=== PATIENT | male | born 1960 | race Caucasian/White ===

== ENCOUNTER 2017-05-22 09:13 | Emergency (ER) | payer OTHER ==
[2017-05-22 09:47] VITALS: BP 141/80
--- NOTE | 2017-05-22 10:22 | UC ---
General HPI - HPI Summary HPI Summary: 57 y/o male PMHX of HTN, gout presents to the urgent care c/o fatigue, weakness , DOWNS, join pains, no appetite for the past week. Pt reports a tick bite 1 year ago w/o any prophylactic treatment. Pt had a benign thyroid nodule removed with needle aspiration in 2016 and hasn't checked his thyroid levels since then. He also reports Hx of Herniated disc s/p surgery in 2016. Pt denies a rash, fever, SOB, chest pain, N/V/D, abdominal pain. Pt has not other complains. - History of Current Complaint Chief Complaint: UCGeneralIllness Stated Complaint: WEAKNESS,TIRED,FEVER Time Seen by Provider: 05/22/17 10:01 Hx Obtained From: Patient Onset/Duration: Gradual Onset, Lasting Days Timing: Constant Onset Severity: Mild Current Severity: Moderate Pain Intensity: 6 - all DOWNS, joints pain and back pain Associated Signs & Symptoms: Positive: Back Pain, Headache, Weakness. Negative : Abdominal Pain, Cough, Chest Pain, Diarrhea, Dysuria, Fever, Nausea, SOB, Vomiting - Allergy/Home Medications Allergies/Adverse Reactions: Allergies Allergy/AdvReac Type Severity Reaction Status Date / Time Ibuprofen [From Advil] Allergy Hives Verified 05/22/17 09:47 PMH/Surg Hx/FS Hx/Imm Hx Previously Healthy: Yes Endocrine History: Thyroid Disease - Thyroid bening nodule removed by needle aspiration in 2016 Other Endocrine History: GOUT Cardiovascular History: Hypertension - Surgical History Surgical History: Yes Surgery Procedure, Year, and Place: KIDNEY STONE REMOVAL, WISDOM TEETH, TONSILS, - Family History Known Family History: Positive: Hypertension - Social History Alcohol Use: Weekly Alcohol Amount: 3-4 WEEKLY Substance Use Type: None Smoking Status (MU): Never Smoked Tobacco Review of Systems Constitutional: Fatigue, Other - no appetite Skin: Negative Eyes: Negative ENT: Negative Respiratory: Negative Cardiovascular: Negative Gastrointestinal: Negative Genitourinary: Negative Motor: Negative Neurovascular: Negative Musculoskeletal: Arthralgia - in all joints and back Neurological: Headache - mild Psychological: Negative All Other Systems Reviewed And Are Negative: Yes Physical Exam Triage Information Reviewed: Yes Appearance: Well-Appearing, No Pain Distress, Well-Nourished Vital Signs: Initial Vital Signs Temp 98.0 F 05/22/17 09:43 Pulse 82 05/22/17 09:43 Resp 16 05/22/17 09:43 BP 141/80 05/22/17 09:43 Pulse Ox 100 05/22/17 09:43 Vital Signs Reviewed: Yes Eye Exam: Normal Eyes: Positive: Conjunctiva Clear - PERRLA, EOMI, fundi grossly normal ENT Exam: Normal ENT: Positive: Normal ENT inspection, Hearing grossly normal, Pharynx normal, TMs normal Dental Exam: Normal Neck exam: Normal Neck: Positive: Supple, Nontender, No Lymphadenopathy Respiratory Exam: Normal Respiratory: Positive: Chest non-tender, Lungs clear, Normal breath sounds Cardiovascular Exam: Normal Cardiovascular: Positive: RRR, No Murmur, Pulses Normal, Brisk Capillary Refill Abdominal Exam: Normal Abdomen Description: Positive: Nontender, No Organomegaly, Soft. Negative: CVA Tenderness (R), CVA Tenderness (L) Bowel Sounds: Positive: Present Musculoskeletal Exam: Normal Musculoskeletal: Positive: Strength Intact, ROM Intact, No Edema, Other: - Back : No scoliosis or lesions observed. FROM, mild point tenderness at the Level of L5 and paraspinal muscles, no spasm observed. Positive sensation, reflexes, pulses intact B/L. Leg raise test:negative Neurological Exam: Normal Psychological Exam: Normal Skin Exam: Normal Course/Dx - Course Course Of Treatment: 57 y/o male PMHX of HTN, gout presents to the urgent care c /o fatigue, weakness, DOWNS, join pains, no appetite for the past week. Pt reports a tick bite 1 year ago w/o any prophylactic treatment. Pt had a benign thyroid nodule removed with needle aspiration in 2016 and hasn't checked his thyroid levels since then. He also reports Hx of Herniated disc s/p surgery in 2016. Pt denies a rash, fever, SOB, chest pain, N/V/D, abdominal pain. Hx obtained. PE abnormal findings: Back: No scoliosis or lesions observed. FROM, mild point tenderness at the Level of L5 and paraspinal muscles, no spasm observed. Positive sensation, reflexes, pulses intact B/L. Leg raise test: negative. The rest of PE WNL. R/o kidney stone since Pt with PMHX of kidney stone;UA ordered: results: negative. No blood in the urine. Pt doesn't recall a tick bite. However concern with Lyme. Present with weakness, myalgias, arthralgias and mild DOWNS. Lyme Serology ordered and Pt Rx Doxycycline PO prophilactically. Advised if symptoms worsen to go to the ER immediately for further treatment. Pt also advised on uncontrolled HTN and advised decrease salt intake and monitor BP and f/u with PCP. Also to get some thyroid levels since HX thyroid nodule and his symptoms can be related to his thyroid.Pt understood and agreed. - Differential Dx - Multi-Symptom Differential Diagnoses: Urinary Tract Infection, Other - Kidney stone, acute lower back pain, uncontolled HTN, Lyme disease. Provider Diagnoses: 1-Arthalgia, myalgias r/o lyme disease. 2-Headache. 3- Uncontrolled HTN Discharge - Discharge Plan Condition: Stable Disposition: HOME Prescriptions: DOXYcycline CAP(*) [DOXYcycline 100MG CAP(*)] 100 mg PO BID #42 cap Patient Education Materials: Lyme Disease (ED), Low Sodium Diet (ED) Referrals: Moise Matos MD [Primary Care Provider] - 1 Week Additional Instructions: Please take antibiotic as instructed and finish the full course of treatment for lyme. Increase fluid intake. Take Tylenol OTC q4-6hrs prn to alleviate symptoms of joint pains and myalgias. Lyme series ordered and if any abnormal results you will receive a call from us. Please f/u with your PCP for furhter work up in your HTN, thyroid levels. If you do not improve or if symptoms worsen please go immediately to the ER for further evaluation and treatment
== END 2017-05-22 10:45 | disposition home or self-care (01) ==
LOC: UCEAST 09:13
DX: M25.50 Pain in unspecified joint (principal); M79.1 Myalgia; R51 Headache; I10 Essential (primary) hypertension
CPT/HCPCS: 81003; 86618; 99212; G0463

== ENCOUNTER 2017-05-22 22:20 | Emergency (ER) | payer OTHER ==
[2017-05-23] MEDS ORDERED: NS 0.9% 1000 ML* 2,900 ML IV ONE (01:01)
[2017-05-23] MEDS ORDERED: HYDROmorphone* 1 MG/ML 1 ML SYR IV ONE (01:02)
[2017-05-23] MEDS ORDERED: Ondansetron INJ* 2 MG/ML VIAL IV ONE (01:02)
[2017-05-23 01:24] LABS: Albumin 3.8 g/dL (3.2-5.2); BUN/Creatinine Ratio 10.8 (8-20); Calcium 9.1 mg/dL (8.6-10.3); EGFR African American 122.4 (>60); EGFR Non-African American 95.2 (>60); Globulin 3.3 g/dL (2-4); Potassium 3.8 mmol/L (3.5-5.0); Total Bilirubin 0.4 mg/dL (0.2-1.0); Total Protein 7.1 g/dL (6.4-8.9)
[2017-05-23 01:34] LABS: Add Diff/Slide Review? Slide Review Added; Comments Flag Yes; Hematocrit 49 % (42-52); Hemoglobin 16.1 g/dl (14.0-18.0); Mean Corpuscular HGB Conc 33 g/dl (31-36); Mean Corpuscular Hemoglobin 31 pg (27-31); Mean Corpuscular Volume 94 fL (80-94); Mean Platelet Volume 9 um3 (7.4-10.4); Red Blood Count 5.19 10^6/ul (4.0-5.4); Red Cell Distribution Width 14 % (10.5-15); White Blood Count 4.5 10^3/ul (3.5-10.8)
[2017-05-23 02:36] LABS: Urine Bilirubin Negative (Negative); Urine Glucose Negative (Negative); Urine Nitrite Negative (Negative)
[2017-05-23] MEDS ORDERED: HYDROmorphone* 1 MG/ML 1 ML SYR IV SLOW PU ONE (02:57)
[2017-05-23 03:06] VITALS: BP 157/86
--- NOTE | 2017-05-23 03:06 | ED ---
Goyo Mahmood Benjamin, scribed for Alice Real MD on 05/23/17 at 0159 . Headache - HPI Summary HPI Summary: 57yo male c/o DOWNS for a week that has been getting worse. Pt is also reporting body aches, and joint pain. Pt was seen at [facility] where they did a UA and lyme Dz test. Pt wa rxed Doxycycline, which pt started today. Pt came to ED as his symptoms are getting worse. No rash anyway. Hx of HTN and Gout. FHX of HTN. - History Of Current Complaint Chief Complaint: EDFluSymptoms Stated Complaint: HEADACHE Time Seen by Provider: 05/23/17 00:29 Hx Obtained From: Patient, Family/Histotechnologist Supervisor - daughter Onset/Duration: Started weeks ago - 1 week, Still Present, Worse Since Initially Headache Was: Mild Currently Pain Is: Moderate Timing: Constant Location of Headache: Diffuse Aggravating Factor: Nothing Allevating Factors: Nothing Associated Signs And Symptoms: Negative - Allergies/Home Medications Allergies/Adverse Reactions: Allergies Allergy/AdvReac Type Severity Reaction Status Date / Time Ibuprofen [From Advil] Allergy Hives Verified 05/22/17 09:47 PMH/Surg Hx/FS Hx/Imm Hx Endocrine/Hematology History: Reports: Hx Thyroid Disease - gout Denies: Hx Diabetes, Hx Anemia Cardiovascular History: Reports: Hx Hypertension Denies: Hx Pacemaker/ICD Respiratory History: Reports: Hx Asthma GI History: Denies: Hx Jaundice History: Reports: Hx Kidney Stones Denies: Hx Renal Disease Sensory History: Reports: Hx Contacts or Glasses Denies: Hx Hearing Aid Opthamlomology History: Reports: Hx Contacts or Glasses Psychiatric History: Denies: Hx Panic Disorder - Surgical History Surgery Procedure, Year, and Place: KIDNEY STONE REMOVAL, WISDOM TEETH, TONSILS, Hx Anesthesia Reactions: Yes - PT STATES WAKES UP VIOLENT Infectious Disease History: No Infectious Disease History: Denies: Traveled Outside the [place] in Last 30 Days - Family History Known Family History: Positive: Hypertension Negative: Cardiac Disease, Diabetes - Social History Occupation: Employed Full-time Lives: With Family Alcohol Use: Weekly Alcohol Amount: 3-4 WEEKLY Substance Use Type: Reports: None Smoking Status (MU): Never Smoked Tobacco Review of Systems Constitutional: Negative Negative: Fever Eyes: Negative ENT: Negative Cardiovascular: Negative Respiratory: Negative Gastrointestinal: Negative Negative: Abdominal Pain Genitourinary: Negative Positive: no symptoms reported Positive: Myalgia Skin: Negative Negative: Rash Positive: Headache Psychological: Normal All Other Systems Reviewed And Are Negative: Yes Physical Exam Triage Information Reviewed: Yes Vital Signs On Initial Exam: Initial Vitals Temp Pulse Resp BP Pulse Ox 99.5 F 88 17 122/96 97 05/22/17 22:23 05/22/17 22:23 05/22/17 22:23 05/22/17 22:23 05/22/17 22:23 Vital Signs Reviewed: Yes Appearance: Positive: Well-Appearing, No Pain Distress, Well-Nourished Skin: Positive: Warm, Skin Color Reflects Adequate Perfusion, Dry Head/Face: Positive: Normal Head/Face Inspection, Temporal Artery Tenderness Eyes: Positive: EOMI, LILIAN ENT: Positive: Hearing grossly normal, Pharynx normal, TMs normal Neck: Positive: Supple, Nontender Respiratory/Lung Sounds: Positive: Clear to Auscultation, Breath Sounds Present. Negative: Rales, Rhonchi Cardiovascular: Positive: RRR. Negative: Murmur Abdomen Description: Positive: Nontender, Soft Bowel Sounds: Positive: Present Musculoskeletal: Positive: Strength/ROM Intact Neurological: Positive: Sensory/Motor Intact, Alert, Oriented to Person Place, Time, CN Intact II-III Psychiatric: Positive: Affect/Mood Appropriate Diagnostics - Vital Signs Vital Signs Temp Pulse Resp BP Pulse Ox 05/23/17 01:54 20 05/23/17 00:09 99.3 F 77 16 96 05/22/17 22:23 99.5 F 88 17 122/96 97 - Laboratory Lab Results: Lab Results 05/23/17 05/23/17 05/23/17 Range/Units 00:50 00:50 00:50 WBC 4.5 (3.5-10.8) 10^3/ul RBC 5.19 (4.0-5.4) 10^6/ul Hgb 16.1 (14.0-18.0) g/dl Hct 49 (42-52) % MCV 94 (80-94) fL MCH 31 (27-31) pg MCHC 33 (31-36) g/dl RDW 14 (10.5-15) % Plt Count Pending MPV 9 (7.4-10.4) um3 Neut % (Auto) 68.0 (38-83) % Lymph % (Auto) 22.3 L (25-47) % [place] % (Auto) 9.1 H (1-9) % Eos % (Auto) 0.3 (0-6) % Baso % (Auto) 0.3 (0-2) % Absolute Neuts (auto) 3.1 (1.5-7.7) 10^3/ul Absolute Lymphs (auto) 1.0 (1.0-4.8) 10^3/ul Absolute Monos (auto) 0.4 (0-0.8) 10^3/ul Absolute Eos (auto) 0 (0-0.6) 10^3/ul Absolute Basos (auto) 0 (0-0.2) 10^3/ul Absolute Nucleated RBC 0.01 10^3/ul Nucleated RBC % 0.2 INR (Anticoag Therapy) 0.99 (0.89-1.11) APTT 27.9 (26.0-36.3) seconds Sodium 129 L (133-145) mmol/L Potassium 3.8 (3.5-5.0) mmol/L Chloride 99 L (101-111) mmol/L Carbon Dioxide 27 (22-32) mmol/L Anion Gap 3 (2-11) mmol/L BUN 9 (6-24) mg/dL Creatinine 0.83 (0.67-1.17) mg/dL Est GFR ( Amer) 122.4 (>60) Est GFR (Non-Af Amer) 95.2 (>60) BUN/Creatinine Ratio 10.8 (8-20) Glucose 126 H (70-100) mg/dL Lactic Acid (0.5-2.0) mmol/L Calcium 9.1 (8.6-10.3) mg/dL Total Bilirubin 0.40 (0.2-1.0) mg/dL AST 44 H (13-39) U/L ALT 58 H (7-52) U/L Alkaline Phosphatase 90 (34-104) U/L Troponin I 0.00 (<0.04) ng/mL Total Protein 7.1 (6.4-8.9) g/dL Albumin 3.8 (3.2-5.2) g/dL Globulin 3.3 (2-4) g/dL Albumin/Globulin Ratio 1.2 (1-3) 07/18/17 Range/Units 00:50 WBC (3.5-10.8) 10^3/ul RBC (4.0-5.4) 10^6/ul Hgb (14.0-18.0) g/dl Hct (42-52) % MCV (80-94) fL MCH (27-31) pg MCHC (31-36) g/dl RDW (10.5-15) % Plt Count MPV (7.4-10.4) um3 Neut % (Auto) (38-83) % Lymph % (Auto) (25-47) % [place] % (Auto) (1-9) % Eos % (Auto) (0-6) % Baso % (Auto) (0-2) % Absolute Neuts (auto) (1.5-7.7) 10^3/ul Absolute Lymphs (auto) (1.0-4.8) 10^3/ul Absolute Monos (auto) (0-0.8) 10^3/ul Absolute Eos (auto) (0-0.6) 10^3/ul Absolute Basos (auto) (0-0.2) 10^3/ul Absolute Nucleated RBC 10^3/ul Nucleated RBC % INR (Anticoag Therapy) (0.89-1.11) APTT (26.0-36.3) seconds Sodium (133-145) mmol/L Potassium (3.5-5.0) mmol/L Chloride (101-111) mmol/L Carbon Dioxide (22-32) mmol/L Anion Gap (2-11) mmol/L BUN (6-24) mg/dL Creatinine (0.67-1.17) mg/dL Est GFR ( Amer) (>60) Est GFR (Non-Af Amer) (>60) BUN/Creatinine Ratio (8-20) Glucose (70-100) mg/dL Lactic Acid 0.9 (0.5-2.0) mmol/L Calcium (8.6-10.3) mg/dL Total Bilirubin (0.2-1.0) mg/dL AST (13-39) U/L ALT (7-52) U/L Alkaline Phosphatase (34-104) U/L Troponin I (<0.04) ng/mL Total Protein (6.4-8.9) g/dL Albumin (3.2-5.2) g/dL Globulin (2-4) g/dL Albumin/Globulin Ratio (1-3) Result Diagrams: 05/23/17 00:50 05/23/17 00:50 Lab Statement: Any lab studies that have been ordered have been reviewed, and results considered in the medical decision making process. - Radiology No standard instances Xray Interpretation: No Acute Changes Radiology Interpretation Completed By: ED Physician - cxr Re-Evaluation - Re-Evaluation First Eval Re-Evaluation Time: 02:56 Headache Course/Dx - Course Course Of Treatment: 57 yo male diagnosed with lyme on Sun after 5 days of body aches and then severe headache tonight, pt already started his doxy. He also does complain of sinus pain now after 1 mg of dilaudid which has helped resolve his discomfort greatly. He will get pain meds at home and will continue the doxy already prescribed which would also cure a sinusitis if that his the source of his fever, he does have low plts and sl elevated liver enzymes which are likely due to his tick borne illness - Diagnoses Provider Diagnoses: Lyme disease Discharge - Discharge Plan Condition: Stable Disposition: HOME Prescriptions: HYDROcodone/ACETAMIN 5-325 MG* [Newberg 5-325 TAB*] 1 tab PO Q8H PRN #20 tab MDD 3 PRN Reason: Pain The documentation as recorded by the Goyo scott Benjamin accurately reflects the service I personally performed and the decisions made by me, Alice Real MD.
[2017-05-23] MEDS ORDERED: HYDROcodone/ACETAMIN 5-325 MG* 1 TAB PO ONE (03:11)
--- NOTE | 2017-05-23 07:48 | RAD ---
INDICATION: Fever COMPARISON: October 19, 2015 TECHNIQUE: An AP portable view obtained at 0114 hours is submitted. FINDINGS: Bones/Soft Tissues: There are no acute bony findings. Cardiomediastinal: The cardiomediastinal silhouette is normal. Lungs: There are no infiltrates. Pleura: There are no pleural effusions. Other: None IMPRESSION: NO ACTIVE DISEASE.
== END 2017-05-23 03:08 | disposition home or self-care (01) ==
LOC: ED 22:20
DX: A69.20 Lyme disease, unspecified (principal); E07.9 Disorder of thyroid, unspecified; I10 Essential (primary) hypertension; J45.909 Unspecified asthma, uncomplicated; Z88.6 Allergy status to analgesic agent; Z87.442 Personal history of urinary calculi
CPT/HCPCS: 36415; 71010; 80053; 81003; 83605; 84484; 85025; 85060; 85610; 85730; 96361; 96374; 96375; 99283; J1170; J2405

== ENCOUNTER 2017-05-24 11:12 | Emergency (ER) | payer OTHER ==
[2017-05-24] MEDS ORDERED: Dexamethasone IV* 4 MG/ML 1 ML (4 MG) IV SLOW PU ONE (13:28)
[2017-05-24] MEDS ORDERED: Ondansetron INJ* 2 MG/ML VIAL IV ONE (13:28)
[2017-05-24] MEDS ORDERED: Morphine INJ* 2 MG/ML 1 ML SYRINGE IV ONE (13:28)
[2017-05-24] MEDS ORDERED: diPHENhydraMINE IV* 50 MG/ML 1 ml VIAL (BENADRYL) IM ONE (13:28)
--- NOTE | 2017-05-24 13:32 | ED ---
Headache - History Of Current Complaint Chief Complaint: EDHeadache Stated Complaint: HEADACHE Time Seen by Provider: 05/24/17 12:09 - Allergies/Home Medications Allergies/Adverse Reactions: Allergies Allergy/AdvReac Type Severity Reaction Status Date / Time Ibuprofen [From Advil] Allergy Hives Verified 05/22/17 09:47 PMH/Surg Hx/FS Hx/Imm Hx Endocrine/Hematology History: Reports: Hx Thyroid Disease - gout Denies: Hx Diabetes, Hx Anemia Cardiovascular History: Reports: Hx Hypertension Denies: Hx Pacemaker/ICD Respiratory History: Reports: Hx Asthma GI History: Denies: Hx Jaundice History: Reports: Hx Kidney Stones Denies: Hx Renal Disease Sensory History: Reports: Hx Contacts or Glasses Denies: Hx Hearing Aid Opthamlomology History: Reports: Hx Contacts or Glasses Psychiatric History: Denies: Hx Panic Disorder - Surgical History Surgery Procedure, Year, and Place: KIDNEY STONE REMOVAL, WISDOM TEETH, TONSILS, Hx Anesthesia Reactions: Yes - PT STATES WAKES UP VIOLENT Infectious Disease History: No Infectious Disease History: Denies: Traveled Outside the [place] in Last 30 Days - Family History Known Family History: Positive: Hypertension Negative: Cardiac Disease, Diabetes - Social History Alcohol Use: Weekly Alcohol Amount: 3-4 WEEKLY Substance Use Type: Reports: None Smoking Status (MU): Never Smoked Tobacco Physical Exam Vital Signs On Initial Exam: Initial Vitals Temp Pulse Resp BP Pulse Ox 98.6 F 68 20 155/86 96 05/24/17 11:14 05/24/17 11:14 05/24/17 11:14 05/24/17 11:14 05/24/17 11:14 - Elaina Coma Scale Coma Scale Total: 15 Diagnostics - Vital Signs Vital Signs Temp Pulse Resp BP Pulse Ox 05/24/17 13:00 67 150/70 98 05/24/17 12:30 66 152/82 100 05/24/17 12:00 66 155/87 98 05/24/17 11:46 67 158/83 96 05/24/17 11:40 98.6 F 67 18 158/83 97 05/24/17 11:14 98.6 F 68 20 155/86 96 - Laboratory Result Diagrams: 05/24/17 13:34 05/24/17 13:34 Lab Statement: Any lab studies that have been ordered have been reviewed, and results considered in the medical decision making process. - CT brain CT Interpretation: No Acute Changes - NO EVIDENCE FOR ACUTE INTRACRANIAL ABNORMALITY. CT Interpretation Completed By: Radiologist maxillofacial CT Interpretation: No Acute Changes - PERIAPICAL LUCENCY ADJACENT TO THE SECOND MOLAR IN THE MAXILLA ON THE RIGHT SIDE DIFFERENTIAL DIAGNOSIS WOULD INCLUDE ABSCESS, GRANULOMA OR CYSTIC LESION. RECOMMEND DENTAL CONSULTATION. Headache Course/Dx - Diagnoses Differential Diagnosis/HQI/PQRI: Meningitis, Migraine, [place] Mtn Spotted Fever, Tension Headache, Viral Syndrome, Other - powassan, pseudotumor cerebri, lyme disease Provider Diagnoses: Headache, Dental abscess Discharge - Discharge Plan Condition: Stable Disposition: HOME Prescriptions: Penicillin VK TAB* [Penicillin VK 250 mg Tab*] 500 mg PO QID #28 tab Patient Education Materials: Dental Abscess (ED), Acute Headache (ED) Additional Instructions: Continue taking medications you are currently taking daily. Please add medication prescribed for dental abscess and procedure. Steroids for inflammation for the next 5 days. Continue pain medication as directed. Follow up with dentist and primary care provider as discussed. Drink plenty of fluids and get plenty of rest. If symptoms worsen (fever, neck stiffness, increased headache, lethargy) or new symptoms develop please seek medical attention promptly.
[2017-05-24] MEDS: NS 0.9% 1000 ML* 2,000 ML IV ONE (13:45)
[2017-05-24 13:46] LABS: Hematocrit 44 % (42-52); Hemoglobin 14.4 g/dl (14.0-18.0); Mean Corpuscular HGB Conc 33 g/dl (31-36); Mean Corpuscular Hemoglobin 31 pg (27-31); Mean Corpuscular Volume 94 fL (80-94); Mean Platelet Volume 8 um3 (7.4-10.4); Red Blood Count 4.63 10^6/ul (4.0-5.4); Red Cell Distribution Width 14 % (10.5-15); White Blood Count 5.5 10^3/ul (3.5-10.8)
[2017-05-24] MEDS ORDERED: diPHENhydraMINE IV* 50 MG/ML 1 ml VIAL (BENADRYL) IV ONE (13:52)
[2017-05-24 14:02] LABS: Albumin 3.3 g/dL (3.2-5.2); BUN/Creatinine Ratio 12.2 (8-20); Calcium 8.8 mg/dL (8.6-10.3); EGFR African American 124.1 (>60); EGFR Non-African American 96.5 (>60); Globulin 3.2 g/dL (2-4); Potassium 4.1 mmol/L (3.5-5.0); Total Bilirubin 0.4 mg/dL (0.2-1.0); Total Protein 6.5 g/dL (6.4-8.9)
[2017-05-24 14:30] LABS: Erythrocyte Sed Rate 27 mm/Hr (0-20)
--- NOTE | 2017-05-24 14:30 | RAD ---
INDICATION: Headache. COMPARISON: Comparison is made with a prior MRI of the brain from September 09, 2010. TECHNIQUE: Contiguous axial sections of the brain were obtained from the skull base to the vertex without contrast. FINDINGS: The ventricles, cisterns and sulci are within normal limits. No significant focal abnormality or mass effect is seen. There is no evidence for hemorrhage. No significant focal osseous abnormality is seen. The visualized portion of the paranasal sinuses and mastoid air cells appear clear. IMPRESSION: NO EVIDENCE FOR ACUTE INTRACRANIAL ABNORMALITY.
--- NOTE | 2017-05-24 14:41 | RAD ---
INDICATION: Jaw pain evaluate for abscess. COMPARISON: There are no prior studies available for comparison. TECHNIQUE: Contiguous axial sections of the axial images of the facial bones were obtained and reconstructed in the coronal and sagittal planes. FINDINGS: There is minimal mucosal thickening within the ethmoid air cells. The paranasal sinuses otherwise appear clear. The estimated complexes appear patent. There is a relatively large area of periapical lucency adjacent to the second molar in the maxilla on the right side. No soft tissue fluid collection or abscess is seen. The parotid and submandibular glands appear to be within normal limits. IMPRESSION: PERIAPICAL LUCENCY ADJACENT TO THE SECOND MOLAR IN THE MAXILLA ON THE RIGHT SIDE DIFFERENTIAL DIAGNOSIS WOULD INCLUDE ABSCESS, GRANULOMA OR CYSTIC LESION. RECOMMEND DENTAL CONSULTATION.
[2017-05-24 15:27] LABS: C Reactive Protein 19.73 mg/L (< 5.00); Magnesium 1.8 mg/dL (1.9-2.7)
[2017-05-24] MEDS ORDERED: Metoclopramide IV* 5 MG/ML 2 ML VIAL IV ONE (15:51)
[2017-05-24] MEDS ORDERED: Morphine INJ* 4 MG/ML 1 ML SYRINGE IV ONE (15:51)
[2017-05-24 16:42] LABS: Urine Bilirubin Negative (Negative); Urine Glucose Negative (Negative); Urine Nitrite Negative (Negative)
[2017-05-24 17:04] VITALS: BP 148/85
== END 2017-05-24 17:03 | disposition home or self-care (01) ==
LOC: ED 11:12
DX: R51 Headache (principal); K04.7 Periapical abscess without sinus; E07.9 Disorder of thyroid, unspecified; I10 Essential (primary) hypertension; J45.909 Unspecified asthma, uncomplicated; Z88.6 Allergy status to analgesic agent; Z87.442 Personal history of urinary calculi
CPT/HCPCS: 36415; 70450; 70486; 80053; 81003; 83605; 83735; 85025; 85652; 86140; 96361; 96374; 96375; 96376; 99283; J1100; J1200; J2270; J2405